=== PATIENT | female | born 1965 | race Hispanic/Latino ===

== ENCOUNTER 2017-09-08 13:39 | Outpatient (CLI) | payer OTHER ==
[2017-09-08 15:13] LABS: Mean Platelet Volume 8.3 fL (7.4-10.4); White Blood Cell (WBC) Count 9.5 thou/uL (4.8-10.8)
[2017-09-08 15:21] LABS: PTT 24.4 SEC (22.9-36.1); Prothrombin Time 12.9 SEC (12.0-14.7)
[2017-09-08 15:37] LABS: ALT (SGPT) 22 U/L (8-55); AST (SGOT) 13 U/L (5-34); Alkaline Phosphatase 111 U/L (40-150); Anion Gap 11 mmol/L (10-20); BUN (Urea Nitrogen) 17 mg/dL (9.8-20.1); Bilirubin, Total 0.3 mg/dL (0.2-1.2); Calc. Creatinine Clearance 0 mL/min (70-130); Calcium 9.4 mg/dL (7.8-10.44); Carbon Dioxide 28 mmol/L (22-29); Chloride 103 mmol/L (98-107); Estimated GFR-MDRD 84; Globulin 3.5 g/dL (2.4-3.5); Protein, Total 7.4 g/dL (6.0-8.3)
--- NOTE | 2017-09-17 21:43 | EKG ---
Test Reason : Blood Pressure : / mmHG Vent. Rate : 081 BPM Atrial Rate : 081 BPM P-R Int : 154 ms QRS Dur : 088 ms QT Int : 386 ms P-R-T Axes : 052 042 059 degrees QTc Int : 448 ms Sinus rhythm with Fusion complexes Low voltage QRS Cannot rule out Anterior infarct (cited on or before 26-JAN-2015) Abnormal ECG When compared with ECG of 26-JAN-2015 18:16, Fusion complexes are now Present Confirmed by GENA ROLLE (2) on 09/17/2017 9:42:44 PM Referred By: CRISELDA Confirmed By:GENA ROLLE
== END 2017-09-08 13:40 | disposition home or self-care (01) ==
LOC: LABBT 13:39
PROVIDERS: ATTEND Internal Medicine Cardiovascular Disease
DX: Z01.818 Encounter for other preprocedural examination (principal); R07.9 Chest pain, unspecified
CPT/HCPCS: 80053; 85027; 85610; 85730; 93005; 93010

== ENCOUNTER 2019-12-23 15:20 | Emergency (ER) | payer OTHER ==
[2019-12-23] MEDS ORDERED: Albuterol Sulfate 2.5 mg/0.5 ml Neb ONE (16:02)
--- NOTE | 2019-12-23 16:06 | RAD ---
PORTABLE CHEST: 12/23/19 COMPARISON: 06/14/14 study. HISTORY: Dyspnea. Heart size is enlarged. Mediastinal structures appear unremarkable. The lungs are clear of infiltrate s. There are no signs of failure. IMPRESSION: Cardiomegaly. POS: [facility]
--- NOTE | 2019-12-23 16:14 | CT ---
CT OF BRAIN PERFORMED WITHOUT CONTRAST ENHANCEMENT: 12/23/19 HISTORY: Syncope and left sided weakness. COMPARISON: An 06/14/14 study. The ventricular and cisternal system is within normal limits. No signs of intracerebral hemorrhage or extra-axial fluid collections. Mastoid air cells and visualized sinuses are clear. IMPRESSION: No acute intracranial abnormalities. POS: [facility]
[2019-12-23 16:27] LABS: #Basophils 0.1 thou/uL (0.0-0.2); #Eosinphils 0.2 thou/uL (0.0-0.7); #Lymphocytes 2.6 thou/uL (1.20-3.40); #Monocytes 0.5 thou/uL (0.11-0.59); #Neutrophils 6.1 thou/uL (1.40-6.50); %Basophils 0.7 % (0.0-1.0); %Eosinophils 1.6 % (0.0-10.0); %Lymphocytes 27.4 % (21.0-51.0); %Monocytes 5.1 % (0.0-10.0); %Neutrophils 65.2 % (42.0-75.0); Hemoglobin 13.6 g/dL (12.0-16.0); Mean Corpuscular HGB CONC 33.6 g/dL (32.0-36.0); Mean Corpuscular Hemoglobin 30.1 pg (27.0-31.0); Mean Corpuscular Volume 89.7 fL (78.0-98.0); Mean Platelet Volume 8.8 fL (7.4-10.4); Platelet Count 232 thou/uL (130-400); RBC Distribution Width 12.7 % (11.5-14.5); Red Blood Cell (RBC) Count 4.51 mill/uL (4.20-5.40); White Blood Cell (WBC) Count 9.3 thou/uL (4.8-10.8)
[2019-12-23 16:36] LABS: ALT (SGPT) 14 U/L (8-55); AST (SGOT) 12 U/L (5-34); Albumin 3.9 g/dL (3.5-5.0); Alkaline Phosphatase 144 U/L (40-110); Anion Gap 12 mmol/L (10-20); BUN (Urea Nitrogen) 15 mg/dL (9.8-20.1); Bilirubin, Total 0.3 mg/dL (0.2-1.2); Calc. Creatinine Clearance 0 mL/min (70-130); Calcium 9.6 mg/dL (7.8-10.44); Carbon Dioxide 26 mmol/L (22-29); Chloride 104 mmol/L (98-107); Estimated GFR-MDRD 85; Glucose 223 mg/dL (70-105); Lipase 29 U/L (8-78); Potassium 3.9 mmol/L (3.5-5.1); Protein, Total 7.9 g/dL (6.0-8.3); Sodium 138 mmol/L (136-145)
== END 2019-12-23 19:32 | disposition home or self-care (01) ==
LOC: ERS 15:20
DX: R06.00 Dyspnea, unspecified (principal); E11.40 Type 2 diabetes mellitus with diabetic neuropathy, unspecified; I10 Essential (primary) hypertension; E78.5 Hyperlipidemia, unspecified; F41.9 Anxiety disorder, unspecified; E66.01 Morbid (severe) obesity due to excess calories; Z79.899 Other long term (current) drug therapy
CPT/HCPCS: 36415; 70450; 71045; 80053; 83690; 83880; 84484; 85025; 93005; J7611; J7620

== ENCOUNTER 2020-03-02 09:03 | Outpatient (CLI) | payer OTHER ==
--- NOTE | 2020-03-02 12:27 | ULT ---
RIGHT UPPER QUADRANT ULTRASOUND: HISTORY: Right upper quadrant pain. FINDINGS: Exam is limited due to patient's body habitus. The liver demonstrates increased echogenicity consistent with fatty infiltration. No focal mass or i ntrahepatic ductal dilatation is seen. The patient is post cholecystectomy. The common duct measure s 6 mm in diameter. The pancreas is suboptimally visualized. The visualized portions of the pancrea s are unremarkable. The right kidney is normal. No free fluid is seen in the Morison's pouch. The liver measures 27 cm in length. IMPRESSION: 1. Status post cholecystectomy without abnormal biliary ductal dilatation. 2. Fatty liver. 3. Hepatomegaly. POS: [facility]
== END 2020-03-02 09:04 | disposition home or self-care (01) ==
LOC: BICULT 09:03
PROVIDERS: ATTEND Student in an Organized Health Care Education/Training Program
DX: R10.11 Right upper quadrant pain (principal); K76.0 Fatty (change of) liver, not elsewhere classified; R16.0 Hepatomegaly, not elsewhere classified; Z90.49 Acquired absence of other specified parts of digestive tract
CPT/HCPCS: 76705

== ENCOUNTER 2021-02-02 08:50 | Emergency (ER) | payer OTHER ==
[~2021-02-02 08:50] MED LIST: Calcium Chloride 1 GM/10 ML Abboject SYRINGE ONE; EPINEPHrine 1 MG/10 ML Abboject SYRINGE ONE; Sodium Bicarb 50 MEQ/50 ML Abboject 8.4% SYRINGE ONE
[2021-02-02 09:31] LABS: Hemoglobin 13.1 g/dL (12.0-16.0); Mean Corpuscular HGB CONC 30.3 g/dL (32.0-36.0); Mean Corpuscular Hemoglobin 29.9 pg (27.0-31.0); Mean Corpuscular Volume 98.5 fL (78.0-98.0); Mean Platelet Volume 9.3 fL (7.4-10.4); Platelet Count 220 thou/uL (130-400); RBC Distribution Width 14.1 % (11.5-14.5); Red Blood Cell (RBC) Count 4.38 mill/uL (4.20-5.40); White Blood Cell (WBC) Count 18.4 thou/uL (4.8-10.8)
[2021-02-02 09:36] LABS: Band 38 % (5-11); Eosinophils 1 % (0-10); Lymphocytes 13 % (21-51); MDiff Complete? YES; Monocytes 2 % (0-10); Myelocyte 1 % (0-0); Neutrophil 45 % (42-75); Platelet Morphology Comment Appears Adequate; Polychromasia SLIGHT = 2-3 cells (100X) (0-2/hpf)
[2021-02-02 09:37] LABS: ALT (SGPT) 759 U/L (8-55); AST (SGOT) 1246 U/L (5-34); Albumin 3.4 g/dL (3.5-5.0); Alkaline Phosphatase 140 U/L (40-110); Anion Gap 40 mmol/L (10-20); BUN (Urea Nitrogen) 13 mg/dL (9.8-20.1); Bilirubin, Total 0.6 mg/dL (0.2-1.2); Calc. Creatinine Clearance 0 mL/min (70-130); Calcium 9.1 mg/dL (7.8-10.44); Chloride 93 mmol/L (98-107); Lipase 45 U/L (8-78); Potassium 5.3 mmol/L (3.5-5.1); Protein, Total 7.4 g/dL (6.0-8.3); Sodium 137 mmol/L (136-145)
[2021-02-02 09:45] LABS: Carbon Dioxide 9 mmol/L (22-29); Glucose 584 mg/dL (70-105)
[2021-02-02 09:59] LABS: CKMB 1.5 ng/mL (0-6.6)
== END 2021-02-02 09:17 | disposition expired ==
LOC: ERS 08:50
DX: I46.9 Cardiac arrest, cause unspecified (principal); E11.40 Type 2 diabetes mellitus with diabetic neuropathy, unspecified; I10 Essential (primary) hypertension; M19.90 Unspecified osteoarthritis, unspecified site; E66.01 Morbid (severe) obesity due to excess calories; Z87.442 Personal history of urinary calculi; E78.5 Hyperlipidemia, unspecified
CPT/HCPCS: 80053; 82553; 83690; 84484; 85025; 92950; 96374; 96375; J0171